=== PATIENT | female | born 1955 ===

== ENCOUNTER → 2024-03-06 10:00 | Outpatient (BNVA) | payer MEDICARE, MEDICAID, SELFPAY | PROVIDERS: Referring Provider Registered Nurse; Visit Provider Specialist | DX: G31.84 Mild cognitive impairment of uncertain or unknown etiology (principal); F29 Unspecified psychosis not due to a substance or known physiological condition; G89.29 Other chronic pain; M54.2 Cervicalgia; H93.12 Tinnitus, left ear; R42 Dizziness and giddiness | CPT/HCPCS: 99204; 99205 ==